=== PATIENT | male | born 1995 | race African-American/Black ===

== ENCOUNTER 2022-07-02 08:56 | Emergency (ER) | payer BC ==
[2022-07-02] MEDS ORDERED: Ketorolac Tromethamine 30 MG/ML VIAL ONE (09:33)
[2022-07-02 10:37] LABS: SARS-CoV-2 NAA Rapid Test Not Detected (NotDetected)
== END 2022-07-02 10:58 | disposition home or self-care (01) ==
LOC: CSHERS 08:56
DX: J18.9 Pneumonia, unspecified organism (principal); Z20.822 Contact with and (suspected) exposure to COVID-19; I10 Essential (primary) hypertension
CPT/HCPCS: 71045; 96372; J1885